=== PATIENT | male | born 1945 | race Caucasian/White ===

== ENCOUNTER → 2022-03-16 12:58 | Outpatient (CLI) | payer OTHER, SELFPAY ==
--- NOTE | ~2022-03-16 | XR_ITS ---
Left elbow Technique: AP, oblique, and lateral views were obtained. Clinical History: Pain Findings: No acute fracture or dislocation is seen. Osseous alignment is anatomic. Joint spaces are p reserved. There is no displacement of the fat pads, and no evidence of joint effusion. There is enthe sopathic change at the lateral epicondyle of the humerus. Impression: No fracture or dislocation. Enthesopathic change at the lateral epicondyle of the humerus. Reviewed, dictated and finalized at location M. OSION WELDER Impression: No fracture or dislocation. Enthesopathic change at the lateral epicondyle of the humerus.
== END ==
PROVIDERS: PCP Internal Medicine; Visit Provider Internal Medicine
DX: M25.522 Pain in left elbow (principal); Z98.890 Other specified postprocedural states
CPT/HCPCS: 73080

== ENCOUNTER 2023-02-01 13:30 | Outpatient (RCR) | payer MEDICARE, SELFPAY ==
[2023-01-02 15:33] VITALS: PULSE 84
== END 2023-02-05 13:57 | disposition home or self-care (01) ==
LOC: ANHCPREHAB 13:30
PROVIDERS: PCP Internal Medicine
DX: Z95.5 Presence of coronary angioplasty implant and graft (principal)
CPT/HCPCS: 93798